=== PATIENT | male | born 1995 | race Two or more races ===

== ENCOUNTER 2017-05-12 21:56 | Emergency (ER) | payer SELFPAY ==
[~2017-05-12] VITALS: Ht 175.3 cm; Wt 78.5 kg
[2017-05-12] MEDS ORDERED: DIPHTH,PERTUSS(ACELL),TET TOX 0.5 ML DISP.SYRIN. VAX IM ONE (23:00)
[2017-05-12] MEDS ORDERED: LIDOCAINE 1% / SOD BICARB 8.4% 20 ML VIAL. IJ ONE (23:00)
[2017-05-12] MEDS ORDERED: LIDOCAINE/EPI/TETRACAINE TOPICAL GEL 3 ML. TP ONE (23:00)
--- NOTE | 2017-05-12 23:44 | PHYS DOC ---
Past Medical History Past Medical History: No Pertinent History Past Surgical History: No Surgical History Alcohol Use: None Drug Use: None Adult General Chief Complaint Chief Complaint: LACERATION/AVULSION HPI HPI Patient is a 22 year old Faroese-speaking male who presents with right rajput laceration. Patient states he got cut by a metal bar at work. Review of Systems Review of Systems Constitutional: Denies fever or chills [] Musculoskeletal: Denies back pain or joint pain [] Integument: right rajput laceration Neurologic: Denies headache, focal weakness or sensory changes [] Current Medications Current Medications Current Medications Medications (Trade) Dose Ordered Sig/Quynh Start Time Stop Time Status Last Admin Dose Admin Diphtheria/ Tetanus/Acell Pertussis (Boostrix) 0.5 ml ONCE ONCE 05/12/17 23:00 05/12/17 23:01 DC 05/12/17 23:36 0.5 ML Lidocaine/ Epinephrine (Let Topical) 3 ml 1X ONCE 05/12/17 23:00 05/12/17 23:01 DC 05/12/17 23:00 3 ML Lidocaine/Sodium Bicarbonate (Buffered Lidocaine 1%) 20 ml 1X ONCE 05/12/17 23:00 05/12/17 23:01 DC 05/12/17 23:59 20 ML Allergies Allergies Allergies Coded Allergies Type Severity Reaction Last Updated Verified No Known Drug Allergies 05/12/17 No Physical Exam Physical Exam Constitutional: Well developed, well nourished, no acute distress, non-toxic appearance. [] Skin: Right rajput with a laceration approximately 6 cm long, there is no obvious tendon involvement. Full range of motion of the right lower extremity. +2 right pedal pulse. Cap refill less than 2 seconds the right toes. Sensation intact to the right lower extremity. Back: No tenderness, no CVA tenderness. [] Extremities: No tenderness, no cyanosis, no clubbing, ROM intact, no edema. [] Neurologic: Alert and oriented X 3, normal motor function, normal sensory function, no focal deficits noted. [] Psychologic: Affect normal, judgement normal, mood normal. [] Current Patient Data Vital Signs Vital Signs Date Time Temp Pulse Resp B/P (MAP) Pulse Ox O2 Delivery O2 Flow Rate FiO2 05/12/17 22:49 18 Room Air EKG EKG [] Radiology/Procedures Radiology/Procedures Indication: Right rajput laceration Procedure: The patient was placed in the appropriate position and anesthesia around the laceration was 1% buffered lidocaine, the area was explored for foreign objects, none was found, the laceration was cleaned with the 100 ML of normal saline and Betadine. The laceration was closed as follows. Inner laceration was closed with 3 interrupted sutures using 2.0 dissolvable gut, exterior laceration was closed with 12 interrupted sutures using 3. 0 Ethilon. The wound was covered with nonstick dressing. Total repaired wound length: Approximately 6 cm long Other Items: none The patient tolerated the procedure well Complications: none Course & Med Decision Making Course & Med Decision Making Pertinent Labs and Imaging studies reviewed. (See chart for details) Patient has right rajput laceration that was closed by me as noted in procedures. Tetanus was updated. Provided wound care instructions as well as return precautions. Discharged in stable condition. Dragon Disclaimer Dragon Disclaimer This electronic medical record was generated, in whole or in part, using a voice recognition dictation system. Departure Departure Impression: Primary Impression: Laceration of right lower extremity Disposition: 01 HOME, SELF-CARE Condition: STABLE Referrals: NO PCP (PCP) Follow-up with the emergency room or your own doctor in 7-10 days for stitches removal Patient Instructions: Laceration Care, Adult Additional Instructions: You were seen for right rajput laceration. Keep the area clean and dry. Apply Neosporin to the area twice a day. Follow-up with the emergency room or your own doctor in 7-10 days for suture removal. onitor the area for signs and symptoms of infection including but not limited to increased redness to the area , increased warmth to the area, yellow drainage from the area and return to the ED or see your doctor if they occur. Problem Qualifiers Primary Impression: Laceration of right lower extremity Encounter type: initial encounter Qualified Codes: S81.811A - Laceration without foreign body, right lower leg, initial encounter LAKISHA MARQUEZ APRN May 12, 2017 23:44
== END 2017-05-13 00:20 | disposition home or self-care (01) ==
LOC: ER 21:56
DX: S81.811A Laceration without foreign body, right lower leg, initial encounter (principal); W26.8XXA Contact with other sharp object(s), not elsewhere classified, initial encounter; Y93.89 Activity, other specified; Y92.69 Other specified industrial and construction area as the place of occurrence of the external cause; Y99.8 Other external cause status
CPT/HCPCS: 12002; 90471; 90715; 99283-25

== ENCOUNTER 2020-12-28 05:12 | Emergency (ER) | payer SELFPAY ==
[~2020-12-28] VITALS: Ht 162.6 cm; Wt 86.4 kg
[2020-12-28] MEDS ORDERED: ASPIRIN CHEWABLE 81 MG TABLET. PO ONE (05:30)
[2020-12-28] MEDS ORDERED: MORPHINE SULFATE 4 MG/ML VIAL. IV ONE (05:30)
[2020-12-28 05:55] LABS: BASO # 0.1 x10^3/uL (0.0-0.2); BASO % 0 % (0-3); EOS # 0.3 x10^3/uL (0.0-0.7); EOS % 2 % (0-3); HEMATOCRIT 43.1 % (39.0-53.0); HEMOGLOBIN 14.6 g/dL (13.0-17.5); LYMPH # 5.1 x10^3/uL (1.0-4.8); LYMPH % 35 % (24-48); MEAN CORPUSCULAR HEMOGLOBIN 30 pg (25-35); MEAN CORPUSCULAR HGB CONC 34 g/dL (31-37); MEAN CORPUSCULAR VOLUME 88 fL (79-100); MONO % 7 % (0-9); NEUT # 8.2 x10^3/uL (1.8-7.7); NEUT % 56 % (31-73); PLATELET COUNT 273 x10^3/uL (140-400); RED BLOOD COUNT 4.87 x10^6/uL (4.30-5.70); RED CELL DISTRIBUTION WIDTH 13.6 % (11.5-14.5); WHITE BLOOD COUNT 14.7 x10^3/uL (4.0-11.0)
--- NOTE | 2020-12-28 05:55 | PHYS DOC ---
Past Medical History Past Medical History: No Pertinent History (ABDIAS,DYLLAN Ortega ) Past Surgical History: No Surgical History (ABDIASDYLLAN Ortega ) Smoking Status: Never Smoker Alcohol Use: Rarely Drug Use: None (DYLLAN CALERO DO) General Adult EDM: Chief Complaint: DIZZY/LIGHT HEADED HPI: HPI: Patient is a 25 year old male with no past medical history presents with a chief complaint of dizziness chest pain and shortness of breath. Patient admits to taking a THC gummy approximately 6hrs ago. Significant other states patient has been anxious all night. Approximately 1 hour ago patient awoke with the chief complaint of chest pressure. (DYLLAN CALERO DO) Review of Systems: Review of Systems: Review of systems: Constitutional symptoms- No fever, no chills. Eyes- No Discharge, No Visual Loss Respiratory symptoms- Positive shortness of breath, No wheezing, No Dyspnea on Exertion Cardiovascular Systems; Positive chest pain, No Palpitations, No syncope Gastrointestinal symptoms: NO abdominal pain, no nausea, no vomiting or diarrhea. Genitourinary symptoms: No dysuria. Musculoskeletal symptoms: No back pain No extremity pain. NEUROLOGICAL Symptoms: No headache, no generalized weakness; No focal Weakness positive dizziness (DYLLAN CALERO I ) Heart Score: C/O Chest Pain: Yes HEART Score for Chest Pain: HEART Score for Chest Pain Response (Comments) Value History Slighlty/Non-Suspicious 0 ECG Normal 0 Age < 45 0 Risk Factors No Risk Factors 0 Total 0 Risk Factors: Risk Factors: DM, Current or recent (<one month) smoker, HTN, HLP, family history of CAD, obesity. Risk Scores: Score 0 - 3: 2.5% MACE over next 6 weeks - Discharge Home Score 4 - 6: 20.3% MACE over next 6 weeks - Admit for Clinical Observation Score 7 - 10: 72.7% MACE over next 6 weeks - Early Invasive Strategies (ABDIASDYLLAN DO) Current Medications: Current Medications Medications (Trade) Dose Ordered Sig/Quynh Start Time Stop Time Status Last Admin Dose Admin Aspirin (Aspirin Chewable) 324 mg 1X ONCE 12/28/20 05:30 12/28/20 05:32 DC Morphine Sulfate (Morphine Sulfate) 4 mg 1X ONCE 12/28/20 05:30 12/28/20 05:32 DC Sodium Chloride 1,000 ml @ 1,000 mls/hr 1X ONCE 12/28/20 06:00 12/28/20 06:59 (DYLLAN CALERO DO) Allergies: Allergies: Allergies Coded Allergies Type Severity Reaction Last Updated Verified No Known Drug Allergies 05/12/17 No (DYLLAN CALERO DO) Physical Exam: PE: General: alert, no acute distress. Skin: warm, dry and intact. Head:: Normocephalic, atraumatic. Neck: Trachea midline. Eyes: EOMI, Normal conjunctiva, No drainage CARDIOVASCULAR: Tachycardia RESPIRATORY: No respiratory distress Back: Full range of motion. MUSCULOSKELETAL: Full range of motion of bilateral upper and lower extremities. GASTROINTESTINAL: Abdomen soft without rebound or guarding. NEUROLOGICAL: Alert and noted to person, place and time. No neurological deficits observed Psychiatric: Cooperative. Normal judgment (DYLLAN CALERO DO) Current Patient Data: Vital Signs: Vital Signs Date Time Temp Pulse Resp B/P (MAP) Pulse Ox O2 Delivery O2 Flow Rate FiO2 12/28/20 05:25 98.0 103 20 145/72 (96) 98 Room Air 98.0 (DYLLAN CALERO DO) EKG: EKG: EKG performed at 525 hours heart rate 102 bpm sinus tachycardia no ST elevation no ST depression no acute [place] [] (DYLLAN CALERO DO) Radiology/Procedures: Radiology/Procedures: [] (DYLLAN CALERO DO) Course & Med Decision Making: Course & Med Decision Making Pertinent Labs and Imaging studies reviewed. (See chart for details) []Treatment included IV fluids. Workup included labs and radiologic imaging. Patient signed out to Dr Rushing. Disposition pending labs/radiology and re-evaluation. (DYLLAN CALERO DO) Course & Med Decision Making I assumed care of the patient 0600. Briefly this is a 25-year-old male presenting emergency department with new onset of chest pain sensation of shortness of breath after taking what is believed to be a THC gummy. Patient arrived hemodynamically stable. Labs and EKG and chest x-ray were reviewed by myself and there does not appear to be any acute abnormality at this time. Patient currently states his symptoms are improved. At this time will discharge home (ABDIAS RUSHING MD) Dragon Disclaimer: Dragon Disclaimer: This electronic medical record was generated, in whole or in part, using a voice recognition dictation system. (ABDIASDYLLAN MYERS CHARLES I DO Dec 28, 2020 05:55 ABDIAS RUSHING MD Dec 28, 2020 07:16
[2020-12-28] MEDS ORDERED: IV NORMAL SALINE 1000ML BAG 1,000 ML IV ONE (06:00)
[2020-12-28 06:11] LABS: CALCIUM 8.7 mg/dL (8.5-10.1); CREATININE 1.1 mg/dL (0.7-1.3); GFR 80.3; POTASSIUM 3.4 mmol/L (3.5-5.1)
[2020-12-28 06:18] LABS: ALBUMIN 4.1 g/dL (3.4-5.0); ALBUMIN/GLOBULIN RATIO 1.2 (1.0-1.7); TOTAL BILIRUBIN 1.4 mg/dL (0.2-1.0); TOTAL PROTEIN 7.5 g/dL (6.4-8.2)
--- NOTE | 2020-12-28 06:52 | RAD ---
Study: XR CHEST 1V Indication: Chest pain. Comparison: None. Findings: The cardiomediastinal silhouette and patrizia are within normal limits. No localized airspace opacity, pl eural effusion or pneumothorax. Impression: No acute radiographic abnormality of the chest. Electronically signed by: ANGELA THOMPSON MD (12/28/2020 6:49 AM) [facility]
[2020-12-28 07:19] VITALS: BP 118/66
--- NOTE | 2020-12-28 11:39 | EKG ---
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
== END 2020-12-28 07:40 | disposition home or self-care (01) ==
LOC: ER 05:12
DX: R42 Dizziness and giddiness (principal); R07.89 Other chest pain; R06.02 Shortness of breath
CPT/HCPCS: 36415; 71045; 80053; 85025; 93005; 96360; 99285; J7030